=== PATIENT | male | born 1940 | race Caucasian/White ===

== ENCOUNTER 2018-04-15 20:42 | Emergency (ER) | payer MEDICARE ==
[~2018-04-15] VITALS: Ht 167.6 cm; Wt 89.0 kg
[2018-04-15] MEDS ORDERED: KEFLEX500 M1 PO (22:24)
[2018-04-15 22:38] VITALS: BP 113/60
== END 2018-04-15 22:38 | disposition home or self-care (01) ==
LOC: ED 20:42
PROC: 0HQNXZZ Repair Left Foot Skin, External Approach (ICD-10-PCS; principal; 2018-04-15)
DX: S92.412A Displaced fracture of proximal phalanx of left great toe, initial encounter for closed fracture (principal); S91.112A Laceration without foreign body of left great toe without damage to nail, initial encounter; I10 Essential (primary) hypertension; J44.9 Chronic obstructive pulmonary disease, unspecified; W20.8XXA Other cause of strike by thrown, projected or falling object, initial encounter; Y93.G3 Activity, cooking and baking; Y92.000 Kitchen of unspecified non-institutional (private) residence as the place of occurrence of the external cause

== ENCOUNTER 2018-12-26 09:34 | Emergency (ER) | payer MEDICARE ==
[~2018-12-26] VITALS: Ht 167.6 cm; Wt 72.0 kg
[~2018-12-26 09:34] MED LIST: DOXAZOSIN4 MG PO; EQ ASPIRIN81 M1 PO; FUROSEMIDE40 MG PO; HYDRO PO; JANUVIA100 MG PO; KEFLEX500 M1 PO; LORTAB 1010 MG PO; METFORMIN500 M1 PO; PANTOPRAZOLE SO40 MG PO; QUINAPRIL PO; SPIRIVA HANDIH18 MCG IN
[2018-12-26 10:13] LABS: HEMATOCRIT 34.6 % (39.0-50.0); HEMOGLOBIN 10.3 g/dl (14.0-18.0); IMMATURE GRANULOCYTES 0.6 % (0.0-5.0); MEAN CELL VOLUME 83.4 fL CALC (80.0-100.0); MEAN CORPUSCULAR HGB 24.8 pG CALC (26.0-32.0); MEAN CORPUSCULAR HGB CONC 29.8 g/L CALC (32.0-36.0); NEUT# 6.39 thou/uL (1.82-7.42); RED BLOOD COUNT 4.15 mill/uL (4.70-6.10)
[2018-12-26 10:38] LABS: ALBUMIN 3.4 g/dL (3.2-5.0); BILIRUBIN, TOTAL 0.4 mg/dL (0.0-1.4); POTASSIUM 4.6 mmol/l (3.5-5.1)
[2018-12-26 10:49] LABS: CREATININE 3.5 mg/dL (0.7-1.3)
[2018-12-26 11:00] LABS: URINE BLOOD DIPSTICK NEGATIVE (NEGATIVE); URINE COLOR YELLOW; URINE GLUCOSE - DIPSTICK NEGATIVE (NEGATIVE); URINE KETONE NEGATIVE (NEGATIVE); URINE LEUK ESTERASE NEGATIVE (NEGATIVE); URINE NITRITE - DIPSTICK NEGATIVE (Negative); URINE PROTEIN - DIPSTICK NEGATIVE (NEG-TRACE); URINE SPECIFIC GRAVITY 1.025; URINE UROBILINOGEN - DIPSTICK 0.2 E.U./dL (0.2)
[2018-12-26 11:03] LABS: AMYLASE 41 u/l (30-110); LIPASE 16 u/l (23-300)
[2018-12-26 11:08] LABS: URINE BILIRUBIN - DIPSTICK SMALL (NEGATIVE)
[2018-12-26] MEDS ORDERED: ACCUPRIL5 MG PO (12:21)
[2018-12-26] MEDS ORDERED: HYDROCO/APAP1 TA9 PO (12:22)
[2018-12-26] MEDS ORDERED: SPIRIVA HANDIH18 MCG (12:22)
[2018-12-26] MEDS ORDERED: DIPHEN/ATROP2.5 MG PO (12:24)
[2018-12-26 14:02] VITALS: BP 111/42
== END 2018-12-26 13:51 | disposition short-term general hospital (02) ==
LOC: ED 09:34
PROVIDERS: Emergency Medicine
DX: K52.1 Toxic gastroenteritis and colitis (principal); T45.1X5A Adverse effect of antineoplastic and immunosuppressive drugs, initial encounter; N17.9 Acute kidney failure, unspecified; J18.9 Pneumonia, unspecified organism; E86.0 Dehydration; C43.9 Malignant melanoma of skin, unspecified; E11.9 Type 2 diabetes mellitus without complications; I10 Essential (primary) hypertension; J44.9 Chronic obstructive pulmonary disease, unspecified